=== PATIENT | female | born 1985 | race African-American/Black ===

== ENCOUNTER 2022-10-02 15:06 | Emergency (ER) | payer BC, SELFPAY ==
[~2022-10-02 15:06] MED LIST: Iopamidol-370 76% 500 ML MDV (1 ML CHARGE) ONE
[2022-10-02] MEDS ORDERED: Morphine 4 MG/ML VIAL ONE (15:25)
[2022-10-02] MEDS ORDERED: Ondansetron PF 4 MG/2 ML Vial ONE (15:26)
[2022-10-02] MEDS ORDERED: cefTRIAXone (ROCEPHIN) 2 GM VIAL ONE (15:26)
[2022-10-02] MEDS ORDERED: Acetaminophen 500 MG TAB ONE (15:26)
[2022-10-02 15:51] LABS: #Neutrophils 13.6 thou/uL (1.40-6.50); %Basophils 0.1 % (0.0-1.0); %Eosinophils 0.1 % (0.0-10.0); %Monocytes 6.1 % (0.0-10.0); %Neutrophils 85.1 % (42.0-75.0); Hematocrit 36.9 % (36.0-47.0); Hemoglobin 12.2 g/dL (12.0-16.0); Mean Corpuscular HGB CONC 33.1 g/dL (32.0-36.0); Mean Corpuscular Hemoglobin 28.8 pg (27.0-31.0); Mean Platelet Volume 10.5 fL (7.4-10.4); Platelet Count 239 10x3/uL (130-400); RBC Distribution Width 12.4 % (11.5-14.5); Red Blood Cell (RBC) Count 4.24 mill/uL (4.20-5.40)
[2022-10-02 16:23] LABS: INR-International Normal Ratio 1.2; PTT 36.7 sec (22.9-36.1); Prothrombin Time 15.6 sec (12.0-14.7)
[2022-10-02 16:24] LABS: ALT (SGPT) 7 U/L (8-55); AST (SGOT) 14 U/L (5-34); Albumin 3.4 g/dL (3.5-5.0); Alkaline Phosphatase 65 U/L (40-110); Anion Gap 12 mmol/L (10-20); BUN (Urea Nitrogen) 8 mg/dL (7.0-18.7); Bilirubin, Total 0.3 mg/dL (0.2-1.2); Calc. Creatinine Clearance 0 mL/min (70-130); Calcium 8.5 mg/dL (7.8-10.44); Carbon Dioxide 22 mmol/L (22-29); Chloride 101 mmol/L (98-107); Estimated GFR 113; Globulin 2.9 g/dL (2.4-3.5); Glucose 87 mg/dL (70-105); Potassium 3.1 mmol/L (3.5-5.1); Protein, Total 6.3 g/dL (6.0-8.3); Sodium 132 mmol/L (136-145)
[2022-10-02 16:52] LABS: BHCG - Serum Negative (NEGATIVE); Pregs Control Background? CLEAR/WHITE (CLR/WHITE); Pregs Control Bar Appear? YES (CONTROL BAR)
[2022-10-02 18:02] LABS: Bilirubin Negative (Negative); Blood, Urine 1+ (Negative); CAUTI Indications for Culture Pelvic or flank pain; Clarity Clear (Clear); Glucose, Urine (Dipstick) Normal (Negative); Ketone, Urine 10 mg/dL (Negative); Leukocyte 500 Leu/uL (Negative); Nitrite Negative (Negative); Protein, Urine (Dipstick) Negative (Neg-Trace); Squamous Epithelial 0-3 HPF (0-3); Urobilinogen Normal mg/dL (Less than 2)
[2022-10-02 18:14] LABS: Bacteria/HPF 3+ HPF (None Seen)
[2022-10-02 18:16] LABS: Urine Culture Reflex Yes Yes
== END 2022-10-02 18:37 | disposition home or self-care (01) ==
LOC: ERS 15:06
DX: N10 Acute pyelonephritis (principal); F17.210 Nicotine dependence, cigarettes, uncomplicated
CPT/HCPCS: 36415; 71045; 74177; 80053; 81001; 83605; 84703; 85025; 85610; 85730; 87040; 87077; 87086; 87186; 93005; 94760; 96365; 96375; J0696; J2270; J2405; Q9967